=== PATIENT | male | born 1930 | race Caucasian/White ===

== ENCOUNTER → 2017-01-01 | Outpatient (CLI) | payer MEDICARE, OTHER ==
[2017-01-01 10:40] LABS: BASOPHIL % 0.3 %; EOSINOPHIL # 0.2 K/uL (0.0-0.5); EOSINOPHIL % 2.1 %; HEMATOCRIT 35.5 % (33.0-50.0); HEMOGLOBIN 10.4 g/dL (11.0-16.0); IMMATURE GRANULOCYTE # 0.1 K/uL (0.0-0.3); IMMATURE GRANULOCYTE % 0.5 %; LYMPHOCYTE # 1.1 K/uL (0.8-4.0); LYMPHOCYTE % 10.5 %; MCH 31.3 pg (27.0-34.0); MCHC 29.3 gm/dL (32.0-36.5); MCV 106.9 fl (83.0-98.0); MONOCYTE # 0.6 K/uL (0.0-1.0); MONOCYTE % 5.8 %; MPV 10.6 fl (9.4-12.4); NEUTROPHIL # (ANC) 8.7 K/uL (1.4-9.0); NEUTROPHIL % 80.8 %; NRBC % 0 /100WBC (0-0.00); PLATELET COUNT 241 K/uL (150-450); RBC 3.32 M/uL (3.50-5.50); RDW-CV 15.3 % (11.9-14.6); WBC 10.7 K/uL (4.0-11.0)
[2017-01-01 10:46] LABS: CALCIUM 8.6 mg/dL (8.5-10.5); CREATININE 1.6 mg/dL (0.6-1.3)
[2017-01-01 10:50] LABS: ANION GAP 8.6 (10.0-19.0); MAGNESIUM 2.6 mg/dL (1.3-2.6); POTASSIUM 4.6 mMol/L (3.7-5.1)
[2017-01-01 10:55] LABS: INR - (THERAPEUTIC) 2.6 (0.9-1.1); PROTIME 29.8 SECONDS (9.6-11.1)
== END | disposition disaster alternative care site (69) ==
PROVIDERS: Family Medicine
DX: I12.9 Hypertensive chronic kidney disease with stage 1 through stage 4 chronic kidney disease, or unspecified chronic kidney disease (principal); I50.43 Acute on chronic combined systolic (congestive) and diastolic (congestive) heart failure; I48.91 Unspecified atrial fibrillation; Z79.01 Long term (current) use of anticoagulants